=== PATIENT | male | born 1995 | race Caucasian/White ===

== ENCOUNTER 2021-12-03 18:01 | Emergency (ER) | payer OTHER ==
[~2021-12-03] VITALS: Ht 170.2 cm; Wt 71.4 kg
[2021-12-03 18:10] VITALS: BP 115/81
[2021-12-03] MEDS ORDERED: IBUPROFEN 600 MG TAB PO ONE (18:25)
--- NOTE | 2021-12-03 18:35 | NUR ---
PT IN ROOM 2
--- NOTE | 2021-12-03 18:36 | NUR ---
ULTASOUND AT BEDSIDE
--- NOTE | 2021-12-03 19:08 | NUR ---
PT IS RESTING SIDE RAILS UP X2. PENDING ULTRASOUND RESULTS.
--- NOTE | 2021-12-03 19:20 | NUR ---
REPORT RECEIVED FROM SCOUT ALANIS. CONTINUITY OF PT CARE AT THIS TIME.
[2021-12-03] MEDS ORDERED: NAPR-54 PO (19:46)
--- NOTE | 2021-12-03 20:39 | NUR ---
Patient discharged. Written and verbal after care instructions given and explained. Patient alert, oriented and verbalized understanding of instructions. Ambulatory with steady gait. All questions addressed prior to discharge. ID band removed. Patient advised to follow up with PMD. Rx of naproxen given. Patient educated on indication of medication including possible reaction and side effects. Opportunity to ask questions provided and answered.
== END 2021-12-03 20:39 | disposition home or self-care (01) ==
LOC: MED 18:01
DX: K40.90 Unilateral inguinal hernia, without obstruction or gangrene, not specified as recurrent (principal); Z79.1 Long term (current) use of non-steroidal anti-inflammatories (NSAID)
CPT/HCPCS: 76870; 99284; Q0092

== ENCOUNTER 2022-04-15 14:25 | Emergency (ER) | payer OTHER ==
[~2022-04-15] VITALS: Ht 170.2 cm; Wt 68.0 kg
[~2022-04-15 14:25] MED LIST: NAPR-54 PO
--- NOTE | 2022-04-15 14:35 | NUR ---
CALLED X 1. NO SHOW.
[2022-04-15 14:40] VITALS: BP 135/78
--- NOTE | 2022-04-15 14:45 | NUR ---
27YO MALE PT C/O REOCCURING R TESTICULAR PAIN W3YCTODA. STATES PAIN AT MOST WHEN SITTING , COUGHING OR WITH PRESSURE. NOTES OCCASIONAL RADIATION TO RU ABDOMEN. DENIES TAKING MEDICATION FOR PAIN, N/V/D, CHEST PAIN, SOB, FEVER OR CHILLS. PT AAOX4, NO VISIBLE DISTRESS. RESPIRATIONS EVEN AND UNLABORED. HX:DENIES NKA
--- NOTE | 2022-04-15 14:46 | NUR ---
PT AMB TO BED 7.
--- NOTE | 2022-04-15 15:00 | NUR ---
MD AYALA AT BEDSIDE FOR EVALUATION
[2022-04-15] MEDS ORDERED: IBUP-2213 PO (15:35)
[2022-04-15] MEDS ORDERED: ACET-10509 PO (15:35)
[2022-04-15 15:42] VITALS: BP 135/78
--- NOTE | 2022-04-15 15:42 | NUR ---
Patient discharged with v/s stable. Written and verbal after care instructions FOR HERNIA given and explained. Patient alert, oriented and verbalized understanding of instructions. Ambulatory with steady gait. All questions addressed prior to discharge. ID band removed. Patient advised to follow up with PMD. Rx of IBUPROFEN given. Opportunity to ask questions provided and answered.
== END 2022-04-15 15:42 | disposition home or self-care (01) ==
LOC: MED 14:25
DX: K40.90 Unilateral inguinal hernia, without obstruction or gangrene, not specified as recurrent (principal)
CPT/HCPCS: 99282

== ENCOUNTER 2023-10-02 15:14 | Emergency (ER) | payer BC, OTHER ==
[~2023-10-02] VITALS: Ht 172.7 cm; Wt 65.8 kg
[~2023-10-02 15:14] MED LIST changes: +ACET-10509 PO; +IBUP-2213 PO
[2023-10-02 15:17] VITALS: BP 103/70; PULSE 78; RESP 18; TEMP 98.7; O2SAT 100
[2023-10-02] MEDS ORDERED: AZEL6SOL6 OP (16:01)
== END 2023-10-02 16:31 | disposition home or self-care (01) ==
LOC: MED 15:14
DX: H57.89 Other specified disorders of eye and adnexa (principal); Z79.899 Other long term (current) drug therapy
CPT/HCPCS: 99283